=== PATIENT | male | born 1985 | race Caucasian/White ===

== ENCOUNTER 2019-08-25 08:59 | Emergency (ER) | payer BC, OTHER ==
--- NOTE | 2019-08-25 10:24 | EDM.PDOC ---
ED HPI GENERAL MEDICAL PROBLEM - General Chief Complaint: Lower Extremity Injury/Pain Stated Complaint: L FOOT INJURY Time Seen by Provider: 08/25/19 09:21 Source of Information: Reports: Patient, RN Notes Reviewed - History of Present Illness INITIAL COMMENTS - FREE TEXT/NARRATIVE: 4-year-old male injured his left second toe yesterday afternoon. He states his dog was "bugging him so he tried to "kick it away". That he injured his left foot. Toe hurts the most but also the bottom of his foot base of left toe. Pain is present at all times but much worse with walking. 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 Treatments [employer]: Reports: NSAIDS Left Foot Pain Score (Numeric/FACES): 7 - Related Data Allergies Allergy/AdvReac Type Severity Reaction Status Date / Time codeine Allergy Hives Verified 08/25/19 09:05 Home Meds: Home Meds . [No Known Home Meds] 08/25/19 [History] Past Medical History HEENT History: Reports: None Cardiovascular History: Reports: None Respiratory History: Reports: Bronchitis, Recurrent Gastrointestinal History: Reports: GERD Genitourinary History: Reports: None Musculoskeletal History: Reports: Neck Pain, Chronic, Other (See Below) Other Musculoskeletal History: Right shoulder pain from past injury, hyperextension Neurological History: Reports: Headaches, Chronic, Head Trauma Other Neuro History: hx of subderal bleed post fall and skull fracture 4 years ago. Psychiatric History: Reports: None Endocrine/Metabolic History: Reports: None Hematologic History: Reports: None Immunologic History: Reports: None Oncologic (Cancer) History: Reports: None Dermatologic History: Reports: None - Infectious Disease History Infectious Disease History: Reports: None - Past Surgical History Head Surgeries/Procedures: Reports: None HEENT Surgical History: Reports: Oral Surgery Male Surgical History: Reports: None Other Musculoskeletal Surgeries/Procedures:: in PT for shoulder Social & Family History - Family History HEENT: Reports: None Cardiac: Reports: None Respiratory: Reports: None GI: Reports: None : Reports: None OBGYN: Reports: None Musculoskeletal: Reports: None Neurological: Reports: None Psychiatric: Reports: None Endocrine/Metabolic: Reports: None Hematologic: Reports: None Immunologic: Reports: None Oncologic: Reports: Breast, Colon, Lymphoma, Metastatic - Tobacco Use Smoking Status *Q: Former Smoker Used Tobacco, but Quit: Yes Month/Year Tobacco Last Used: 02/2019 - Caffeine Use Caffeine Use: Reports: Coffee, Soda - Recreational Drug Use Recreational Drug Use: Yes Drug Use in Last 12 Months: No Recreational Drug Type: Reports: Cocaine, Heroin, LSD (Acid), Marijuana/Hashish , Mescaline, Oxycodone, PCP (Isai Dust) Other Recreational Drug Type: Has not used in 15 years Recreational Drug Use Frequency: Not Used In Over 1 Year Review of Systems - Review of Systems Review Of Systems: See Below Constitutional: Reports: No Symptoms Respiratory: Reports: No Symptoms GI/Abdominal: Denies: Nausea, Vomiting Musculoskeletal: Reports: Foot Pain Skin: Reports: Bruising (Vulvar bruising proximal left second toe) Neurological: Reports: No Symptoms ED EXAM, GENERAL - Physical Exam Exam: See Below Head: Atraumatic Neck: Supple Respiratory/Chest: No Respiratory Distress Extremities: Other (tender base of 2nd toe dorsal and volar, mild bruising base of 2nd toe) Skin Exam: Warm, Dry Course - Vital Signs Last Recorded V/S: Last Vital Signs Temp 97.2 F 08/25/19 09:10 Pulse 103 H 08/25/19 09:10 Resp 16 08/25/19 09:10 BP 151/98 H 08/25/19 09:10 Pulse Ox 98 08/25/19 09:10 - Re-Assessments/Exams Free Text/Narrative Re-Assessment/Exam: 08/25/19 10:25 X-rays do show corner fracture base of small phalanx second toe. Offered a hard walking boot, patient does not want that, states he will not be able to work and that. Offered crutches, he does not want that either. Have reviewed x -rays with patient and discussed fracture with him. Departure - Departure Time of Disposition: 10:22 Disposition: Home, Self-Care 01 Condition: Fair Clinical Impression: Toe fracture, left Qualifiers: Encounter type: initial encounter Toe: lesser toe Fracture type: closed Phalanx : proximal Fracture alignment: nondisplaced Qualified Code(s): S92.515A - Nondisplaced fracture of proximal phalanx of left lesser toe(s), initial encounter for closed fracture - Discharge Information Instructions: Toe Fracture, [id number] Referrals: PCP,None [Primary Care Provider] - Forms: ED Department Discharge Additional Instructions: Sebastián wrap L foot as needed, kerri tape 2nd toe to large toe as needed for compfort. Alternate Tylenol and ibuprofen as needed. Try stay off foot as much as possible. You may continue working best you can. Follow-up with Dr. Gan, Orthopedist [facility] recheck sometime next week, call [phone] for appointment. X-rays will be pushed to [facility] at this time so he should be able to pull our x-rays up for review. Sepsis Event Note - Evaluation Sepsis Screening Result: No Definite Risk - Focused Exam Date Exam was Performed: 08/26/19 Time Exam was Performed: 09:19
--- NOTE | 2019-08-25 14:04 | CR ---
Left foot: 4 views of the left foot were obtained. Comparison: No previous foot exam. Joint spaces are maintained. Fracture identified within the corner base of the proximal phalanx of the 2nd toe. Articular extension is seen. Lucent lesion is seen within this area and this may be a pathologic fracture through a possible enchondroma. No additional fracture or other bony abnormality is appreciated. Impression: 1. Pathologic corner fracture within a bony lesion most likely representing enchondroma. This is located within the base of the proximal phalanx of the 2nd toe. 2. No additional abnormality is identified on left foot exam. Diagnostic code #3 This report was dictated in MDT
== END 2019-08-25 10:32 | disposition home or self-care (01) ==
LOC: JD.ED 08:59
DX: S92.515A Nondisplaced fracture of proximal phalanx of left lesser toe(s), initial encounter for closed fracture (principal); Z88.5 Allergy status to narcotic agent; X58.XXXA Exposure to other specified factors, initial encounter
CPT/HCPCS: 73630-26-LT; 73630-LT; 99283; 99283-25